=== PATIENT | female | born 1960 | race Caucasian/White ===

== ENCOUNTER → 2023-09-21 09:41 | Outpatient (REF) | payer OTHER, SELFPAY | LOC: MRI 3T 09:41 | PROVIDERS: ATTENDING PHYSICIAN Surgery; FAMILY PHYSICIAN Internal Medicine | DX: K86.9 Disease of pancreas, unspecified (principal) | CPT/HCPCS: 74183; A9575 ==

== ENCOUNTER → 2024-01-04 07:32 | Outpatient (REF) | payer OTHER, SELFPAY | LOC: MRI 3T 07:32 | PROVIDERS: ATTENDING PHYSICIAN Surgery; FAMILY PHYSICIAN Internal Medicine | DX: K86.9 Disease of pancreas, unspecified (principal) | CPT/HCPCS: 74183; A9575 ==

== ENCOUNTER → 2024-07-17 07:31 | Outpatient (REF) | payer OTHER, SELFPAY | LOC: PAVMRI 07:31 | PROVIDERS: ATTENDING PHYSICIAN Surgery; FAMILY PHYSICIAN Internal Medicine | DX: K86.9 Disease of pancreas, unspecified (principal); D37.6 Neoplasm of uncertain behavior of liver, gallbladder and bile ducts | CPT/HCPCS: 74183; A9575 ==

== ENCOUNTER 2024-07-25 12:56 | Emergency (ER) | payer OTHER, SELFPAY ==
[2024-07-25] VITALS (10 sets, daily range): BP systolic 124–193; BP diastolic 73–100; PULSE 64–69
[2024-07-25 13:34] LABS: % Basophils 0.9 % (0-2); % Eosinophils 1.7 % (0-6); % Immature Granulocytes 0.2 % (0-0.5); % Lymphocytes 37.3 % (20.5-51.1); % Monocytes 6.3 % (1.7-9.3); % Neutrophils 53.6 % (42.2-75.2); Absolute Basophils 0.1 10^3/uL (0-0.2); Absolute Eosinophils 0.1 10^3/uL (0-0.7); Absolute Lymphocytes 2.1 10^3/uL (1.2-3.4); Absolute Monocytes 0.4 10^3/uL (0.1-0.6); Absolute Neutrophils 3.1 10^3/uL (1.4-6.5); Hematocrit 43.5 % (37.0-47.0); Hemoglobin 14.6 g/dL (12.0-16.0); Mean Corp Hgb Conc. 33.6 g/dL (33.0-37.0); Mean Corpuscular Hgb 29.4 pg (27.0-31.0); Mean Corpuscular Volume 87.7 fL (81.0-99.0); Mean Platelet Volume 9.5 fL (7.4-10.4); Nucleated Red Blood Cells % 0 %; Platelet Count 289 10^3/uL (130-400); Red Blood Cell Count 4.96 10^6/uL (4.20-5.40); Red Cell Dist. Width 12.2 % (11.5-14.5); White Blood Cell Count 5.7 10^3/uL (4.8-10.8)
[2024-07-25 13:54] LABS: INR 0.92; PT 12.7 Sec (11.4-14.6)
[2024-07-25 13:58] LABS: ALT (SGPT) 29 U/L (0-35); AST (SGOT) 35 U/L (14-36); Albumin 5.1 g/dl (3.5-5.0); Alkaline Phosphatase 79 U/L (38-126); Blood Urea Nitrogen 13 mg/dl (7-17); Calcium 10.9 mg/dl (8.4-10.2); Carbon Dioxide 27 mmol/L (22-30); Chloride 108 mmol/L (98-107); Glucose 97 mg/dl (70-99); Potassium 4.9 mmol/L (3.5-5.1); Sodium 144 mmol/L (135-145); Total Bilirubin 0.9 mg/dl (0.2-1.3); eGFR > 60.00
[2024-07-25 14:07] LABS: Troponin I < 0.012 ng/ml
--- NOTE | 2024-07-25 15:12 | ED.GENMED ---
History of Present Illness
General
Chief Complaint: Chest Pain
Source: patient
Exam Limitations: none
Time Seen by Provider: 07/25/24 14:23
Nursing documentation reviewed up to this point in time: agreed with
History of Present Illness
History of Present Illness:
Patient with history of hypertension on lisinopril, presents to ED secondary to intermittent episodes of palpitations, associated with sensation of 'passing out', lasting approximately 1 to 2 minutes. Episodes does not appear to be positional nor
exertional, as it could happen at rest. Patient has had chest palpitations in the past, for which she has worn Holter monitor, but at that time it was not associated with any other symptoms. Incidentally, patient recently had calcium score CT done
which picked up neuroendocrine tumor. Patient is scheduled to see surgeon next week. Denies chest pain. Denies nausea or vomiting. Denies diaphoresis. Denies recent change in medications or diet. Patient has been taking [id number]
medication for seasonal allergies.
Past History
Past History
ED Past Medical History: None
ED Past Surgical History: None
Social History
Tobacco: Non-smoker
Alcohol: None
Review of Systems
Review of Systems
Allergies reviewed?: Yes
All Other Systems: ROS reviewed and negative except as documented in HPI and ROS
Constitutional: Reports no symptoms
Respiratory: Reports no symptoms
Cardiac: Reports palpitations and other (near syncope)
ABD/GI: Reports no symptoms
Musculoskeletal: Reports no symptoms
Skin: Reports no symptoms
Neurological: Reports no symptoms
Phy Exam
Physical Exam
Physical Exam:
Physical Exam
General: no apparent distress, not acutely ill. afebrile.
Head: nc/at. eomi
Neck: supple. normal range of motion.
Heart: s1/s2 regular rate and rhythm
Lungs: no acute respiratory distress. clear bilaterally
Abdomen: normal bowel sounds. not tender.
Neuro: alert and oriented x 3. no focal neurological deficits
Skin: no rash
Psychiatric: well kept. interactive and cooperative
Extremities: no edema. no calf tenderness.
Scores
Heart Score for Chest Pain Patients
STEMI patient?: Not applicable
Course
Orders/Labs/Results
Orders:
Orders
07/25/24 13:01
EKG [Electrocardiogram (*1)] Urgent
Reason for Study: Chest Pain
EKG- Treatment ONCE
07/25/24 13:20
Complete Blood Count/With Diff Urgent
Comprehensive Metabolic Panel Urgent
Prothrombin Time Urgent
Troponin I Urgent
07/25/24 15:34
Orthostatic VS- Treatment ONCE
Abnormal Lab Results
07/25/24
13:20
Chloride 108 H mmol/L
(98-107)
Calcium 10.9 H mg/dl
(8.4-10.2)
Albumin 5.1 H g/dl
(3.5-5.0)
07/25/24 13:20
07/25/24 13:20
Vital Signs
Initial and Last Documented VS:
Initial Vital Signs
Temp Pulse Resp BP Pulse Ox
97.7 F 85 17 193/100 99
07/25/24 12:58 07/25/24 12:58 07/25/24 12:58 07/25/24 12:58 07/25/24 12:58
Last Documented Vital Signs
Temp Pulse Resp BP Pulse Ox
97.7 F 69 22 124/76 98
07/25/24 12:58 07/25/24 16:00 07/25/24 16:00 07/25/24 16:00 07/25/24 16:00
MDM/Problems Addressed
MDM/Problems Addressed:
Patient with an unremarkable workup in ED, including blood work and EKG. Orthostatic vital signs unremarkable. Patient is able to ambulate in ED independently, with steady gait, without reproducing her symptoms.
Patient already has an appointment with her surgeon regarding neuroendocrine tumor, which could potentially be causing her presenting symptoms. In addition, discussed with on-call cardiology, Dr. Anderson. Cardiology office will reach out to
patient for urgent follow-up, including potential Holter monitor placement.
*EKG
Interpreted by ED Provider?: Yes
EKG Intrepretation Date: 07/25/24
Heart Rate: 64
Rate: normal
Rhythm: sinus
Bethune: normal axis
Interval: normal interval
*Critical Care Note
Total Time (30-74mins, 75-104mins- exclusive of procedures): Not Applicable
ED Attending Note
-
Portions of this chart may have been created with voice recognition software.� Occasional wrong word or��sound alike� substitutions may have occurred due to the inherent limitations of voice recognition software.
Discharge Plan
Departure
Patient Disposition: Home (Routine Discharge)
Date of Disposition: 07/25/24
Time of Disposition: 15:55
Patient with high blood pressure during this ER visit?: Yes
Condition: Good
Discharge Problem:
Heart palpitations, Syncope, near
Instructions: Near Fainting (DC), Palpitations - ED discharge instructions
Prescriptions:
No Action
lisinopril 10 mg Tablet
10 mg PO DAILY
Fish Oil Capsule
2 cap PO BID
CoQ-10
1 dose PO DAILY
Glucos Chond Cplx Advanced
1 dose PO BID
Vitamin D3
1 dose PO BID
acetaminophen-codeine 300-30 mg Tablet
1 tab PO Q4HPRN PRN (Reason: pain) Qty: 10 0RF
ondansetron 4 mg Tablet,Disintegrating
4 mg PO BIDPRN PRN (Reason: nausea/vomiting) Qty: 10 0RF
Referrals:
Nati Leahy MD [Active] -
Activity Restrictions/Additional Instructions:
As discussed, please follow-up with your donor processor for further evaluation and treatment, including Holter monitoring. Please return to ED with worsening symptoms.
Interventions
Interventions:
*Risk Screen - Suicide Last Done: 07/25/24 13:00
*General Assessment Last Done: 07/25/24 13:00
*Neglect/Abuse Screening Last Done: 07/25/24 13:00
*ED- Fall Risk Assessment Last Done: 07/25/24 14:23
*ED COVID-19 Vaccine History Last Done: 07/25/24 13:00
*Nursing Disposition Last Done: 07/25/24 16:10
ED- Cardiac Assessment Last Done: 07/25/24 14:13
Discharge Date and Time
Discharge Date/Time: 07/25/24 16:15
Print Language: YI
== END 2024-07-25 16:15 | disposition home or self-care (01) ==
LOC: EMR 12:56
PROVIDERS: Emergency Medicine; EMERGENCY PHYSICIAN Emergency Medicine; FAMILY PHYSICIAN Internal Medicine; OTHER PHYSICIAN Internal Medicine Cardiovascular Disease
DX: R00.2 Palpitations (principal); R55 Syncope and collapse; I10 Essential (primary) hypertension; Z79.899 Other long term (current) drug therapy
CPT/HCPCS: 99284; 80053; 84484; 85025; 85610; 93005

== ENCOUNTER 2025-01-22 06:25 | Day surgery (SDC) | payer OTHER, SELFPAY | END 2025-01-22 12:00 | disposition home or self-care (01) | LOC: GI 06:25 | PROVIDERS: ATTENDING PHYSICIAN Internal Medicine Gastroenterology; FAMILY PHYSICIAN Internal Medicine | DX: Z12.11 Encounter for screening for malignant neoplasm of colon (principal); K52.9 Noninfective gastroenteritis and colitis, unspecified; K63.5 Polyp of colon; K63.3 Ulcer of intestine; K63.89 Other specified diseases of intestine; K57.30 Diverticulosis of large intestine without perforation or abscess without bleeding; K64.9 Unspecified hemorrhoids; Z80.0 Family history of malignant neoplasm of digestive organs | CPT/HCPCS: 45385; 45380; 88305; 88341; 88342 ==

== ENCOUNTER → 2025-02-13 08:24 | Outpatient (REF) | payer OTHER, SELFPAY | LOC: PAVMRI 08:24 | PROVIDERS: ATTENDING PHYSICIAN Surgery; FAMILY PHYSICIAN Internal Medicine | DX: K86.9 Disease of pancreas, unspecified (principal) | CPT/HCPCS: 74183; A9575 ==